=== PATIENT | female | born 1985 | race Caucasian/White ===

== ENCOUNTER 2018-11-14 05:41 | Inpatient (IN) | payer BC ==
[~2018-11-14] VITALS: Ht 170.2 cm; Wt 122.0 kg
[~2018-11-14 05:41] MED LIST: ACET1TAB40 PO; IBUP-1545 PO; LANS15CA27 PO; LEVO-86 PO; PRENAT PO
[2018-11-14 05:52] VITALS: BP 109/76; PULSE 114; RESP 18
[2018-11-14 06:17] VITALS: Ht 170.2 cm; Wt 122.0 kg
[2018-11-14] MEDS ORDERED: LACTATED RINGER'S 1,000 ML IV SCH (06:19)
[2018-11-14] MEDS ORDERED: AZITHROMYCIN 500MG/NS (PMX) 250 ML IV SCH (06:30)
[2018-11-14] MEDS ORDERED: CARBOPROST 250 MCG INJ IM PRN ×2 (06:30→14:30)
[2018-11-14] MEDS ORDERED: MISOPROSTOL 200 MCG TAB PR PRN ×2 (06:30→14:30)
[2018-11-14] MEDS ORDERED: METHYLERGONOVINE 0.2 MG INJ IM PRN ×2 (06:30→14:30)
[2018-11-14] MEDS ORDERED: OXYTOCIN 30 UNITS/LR 500 ML IV PRN ×2 (06:30→14:30)
[2018-11-14] MEDS ORDERED: ESCI10TA48 PO (06:57)
[2018-11-14] MEDS ORDERED: CHOL100062 PO (06:57)
[2018-11-14] MEDS ORDERED: CYAN100T PO (06:57)
--- NOTE | 2018-11-14 07:20 | PREAC ---
Date/Time of Note Date/Time of Note DATE: 11/14/18 TIME: 07:18 Anesthesia Eval and Record Evaluation Time Pre-Procedure Interview DATE: 11/14/18 TIME: 07:18 Age 33 Sex female NPO: 8 hrs Preoperative diagnosis Repeat and BTL Planned procedure and BTL Past Medical History Past Medical History: Includes Endo: Hypothyroid Heme: Anemia : : (2), Para: (1), Gestational age: (39) Surgery & Anesthesia Issues No known issue Meds Anticoagulation: No Beta Jenae within 24 hr: No Reason Beta Jenae not given: Pt. not on B-Jenae Reported Medications Cyanocobalamin* (Vitamin B12*) 100 Mcg Tab, 200 MCG PO DAILY, TAB 11/14/18 Cholecalciferol* (Vitamin D3*) 1,000 Unit Tablet, 1000 UNIT PO DAILY, TAB 11/14/18 Escitalopram Oxalate* (Escitalopram Oxalate*) 10 Mg Tablet, 10 MG PO DAILY, #30 TAB 11/14/18 Lansoprazole* (Prevacid*) 15 Mg Capsule.dr, 15 MG PO DAILY, CAP 12/01/14 Multivit/Min/Fol Ac/Iron/Pren* ( S*) 1 Tab Tab, 1 TAB PO DAILY, TAB 12/01/14 Levothyroxine Sodium* (Synthroid*) 100 Mcg Tablet, 100 MCG PO AC BREAKFAST, TAB 12/01/14 Discontinued Scripts Acetaminophen-Codeine* (Acetaminophen-Cod #3*) 300-30 Mg Tab, 1 TAB PO Q4H PRN for PAIN, #30 TAB Prov:BENOIT PICKARD MD 12/04/14 Ibuprofen* (Ibuprofen*) 800 Mg Tab, 800 MG PO Q8, #30 TAB Prov:BENOIT PICKARD MD 12/04/14 Current Medications Lactated Ringer's 1,000 ml @ 125 mls/hr Q8H IV Last administered on 11/14/18at 06:55; Admin Dose 125 MLS/HR; Start 11/14/18 at 06:19 Cefazolin Sodium 3 gm/Dextrose 100 ml @ 100 mls/hr ONCE IV ; Start 11/14/18 at 07:30 Oxytocin/Lactated Ringer's 500 ml @ 125 mls/hr POST IV ; Start 11/14/18 at 06:30 Azithromycin 250 ml @ 250 mls/hr ONCE IV Last administered on 11/14/18at 06:55; Admin Dose 250 MLS/HR; Start 11/14/18 at 06:30 Oxytocin/Lactated Ringer's 500 ml @ 0 mls/hr ONCE PRN IV .VAGINAL BLEEDING; Start 11/14/18 at 06:30 Methylergonovine Maleate (Methergine) 0.2 mg ONCE PRN IM .VAGINAL BLEEDING; Start 11/14/18 at 06:30 Carboprost Tromethamine (Hemabate) 250 mcg ONCE PRN IM .VAGINAL BLEEDING; Start 11/14/18 at 06:30 Misoprostol (Cytotec) 1,000 mcg ONCE PRN TN .VAGINAL BLEEDING; Start 11/14/18 at 06:30 Meds reviewed: Yes Allergies Coded Allergies: No Known Allergies (Verified Allergy, Unknown, 11/14/18) Allergies Reviewed: Yes Labs/Studies Labs Reviewed: Reviewed by anesthesiologist Result Diagram: 11/14/18 0600 Laboratory Tests 11/14/18 06:00 test: Positive Studies: ECG (n/a), CXR (n/a) Pre-procedure Exam Last vitals Vital Signs Date Temp Pulse Resp B/P (MAP) Pulse Ox O2 O2 Flow FiO2 Time Delivery Rate 11/14/18 97.8 114 18 109/76 Room Air 05:52 (87) Airway: Adequate mouth opening, Adequate thyromental dist Mallampati: Mallampati II Teeth: Normal Lung: Normal Heart: Normal ASA Physical Status ASA physical status: 2 Emergency: None Planned Anesthetic Neuraxial: Spinal Planned Pain Management Sub-arachniod narcotics, Parenteral pain med Pre-operative Attestations Prior to commencing anesthesia and surgery, the patient was re-evaluated, there was verification of: *The patient's identity *The results of appropriate recent lab work and preoperative vital signs *The above evaluation not changing prior to induction *Anesthetic plan, risk benefits, alternative and complications discussed with patient/family; questions answered; patient/family understands, accepts and wishes to proceed. LUDA CALZADA MD Nov 14, 2018 07:19
[2018-11-14] MEDS ORDERED: CEFAZOLIN 3 GM in DEXTROSE 5% 100 ML IV SCH (07:30)
[2018-11-14] MEDS ORDERED: CITRIC ACID/NA CITRATE 30 ML CUP PO ONE (07:30)
[2018-11-14] MEDS ORDERED: ONDANSETRON 4 MG INJ IV ONE (07:30)
--- NOTE | 2018-11-14 10:02 | HP ---
Date/Time of Note Date/Time of Note DATE: 11/14/18 TIME: 09:54 OB - History Hx of Present Free Text/Dictation 33 years old 2 para 1001 with previous delivery and hypothyroidism at 39 weeks desires repeat delivery and permanent surgical sterilization. She states good movement. She denies nausea, vomiting, shortness of breath, chest pain, headache, visual changes, vaginal b leeding or LOF. TOLAC discussed with patient and in multiple occasion during visit. They declined Chief Complaint: Scheduled for repeat delivery and permanent surgical sterilization Estimated Due Date: Nov 21, 2018 : 2 Para: 1 Spontaneous : 0 Therapeutic : 0 Care: Good Care Ultrasounds: Normal mid trimester US Obstetrical Complications: None Medical Complications: Other (Hypothyroidism) Past Family/Social History * Past Medical, Surgical, Family and Obstetric Histories reviewed from chart. Blood Type: A+ Rubella: immune RPR/VDRL: Negative GBS Status: Negative HBsAG: Negative OB Admission Exam Vital Signs Vital Signs Vital Signs Date Temp Pulse Resp B/P (MAP) Pulse Ox O2 O2 Flow FiO2 Time Delivery Rate 11/14/18 97.8 114 18 109/76 Room Air 05:52 (87) Physical Exam HEENT: WNL Heart: Rhythm Normal Lungs: Clear Abdomen: WNL Extremities: Normal Reflexes: Normal Membranes: Intact Heart Rate: 140's Accelerations: Accelerations Present Decelerations: No Decelerations Varibility: Moderate Contractions on Admission: >10 Minutes Apart Intensity: Mild Last 72 hours Lab Results CBC & BMP 11/14/18 06:00 OB Assessment/Plan Other plan: 33 years old 2 para 1001 with hypothyroidism and previous delivery at 39 weeks desires repeat delivery and permanent surgical sterilization. She declined TOLAC - FHR: No sign of metabolic acidosis- Category I - Continuous EFM, toco - CBC, blood type and screen - Please see the orders - A+/Rubella: Immune - GBS: Negative 2) Hypothyroidism: Effect on discussed in detail with patient. She is currently on levothyroxine 100 mcg daily, continue same dose. The risk of delivery including but not limited to bleeding, infection, injury to other organs (bowel, bladder, ureter, vessels, nerves), injury to fetus, blood transfusion, blood transfusion related infection, risk of anesthesia, adhesion, needs for future , removal of uterus, permanent surgical sterilization, other contraceptive options including IUD, increased risk of ectopic if failure of procedure alternatives or any other indicated surgery was discussed with the patient and her family. She expressed understanding. All of her questions were answered. She signed the informed consent. PHYSICIAN'S VERIFICATION OF INFORMED CONSENT The patient was counseled regarding the procedure, its indications, risks, potential complications and alternatives and any questions were answered. Consent was obtained. PLANNED PROCEDURE/TREATMENT: delivery with possible using vacuum/forceps, bilateral tubal ligation/salpingectomy and any other indicated surgery PHYSICIAN'S VERIFICATION OF INFORMED CONSENT FOR BLOOD TRANSFUSION: There is a reasonable possibility that blood transfusion will be necessary as a result of the patient's procedure. I have discussed the following with the patient/patient's legal public health representative: An explanation of the benefits and risks of the transfusion of blood or blood products and the possible alternatives. All questions have been answered to the patient's satisfaction. INFORMED CONSENT:The patient has been informed of: The nature of the proposed care, treatment, services, medications, interventions or procedures. Potential benefits, risks or side effects, including potential problems related to recuperation. The likelihood of achieving care treatment and service goals. Reasonable alternatives to the proposed care, treatment and service. The relevant risks, benefits and side effects related to alternatives, including the possible results of not receiving care, treatment and services. When indicated, any limitations on the confidentiality of information learned from or about the patient. If appropriate, the risks, benefits and alternatives of the drugs to be used for sedation/analgesia including moderate sedation. If appropriate, patient has been provided information on the risks, benefits and alternatives to the transfusion of blood and/or blood products. If appropriate, patient has been provided information regarding the Yo[employer] Oneil Blood Act. SANAM RODRÍGUEZ Nov 14, 2018 10:02
[2018-11-14] MEDS ORDERED: morphine SULFATE/PF (10 MG/10 ML) INJ ONE (10:05)
[2018-11-14] MEDS ORDERED: OXYTOCIN 10 UNIT INJ ONE (10:05)
[2018-11-14] MEDS ORDERED: PHENYLephrine (100 MCG/ML) 10ML SYG ONE (10:05)
[2018-11-14] MEDS ORDERED: ONDANSETRON 4 MG INJ IV PRN (10:30)
[2018-11-14] MEDS ORDERED: ACETAMINOPHEN 500 MG TAB PO PRN (10:30)
[2018-11-14] MEDS ORDERED: morphine 2 MG INJ IV PRN ×2 (10:30)
[2018-11-14] MEDS ORDERED: HYDROCODONE/APAP (5/325) TAB PO PRN (10:30)
[2018-11-14] MEDS ORDERED: HYDROmorphONE 0.5 MG/0.5 ML SYG IV PRN ×2 (10:30)
[2018-11-14] MEDS ORDERED: NALOXONE (0.4 MG/ML) INJ IV PRN (10:30)
[2018-11-14] MEDS ORDERED: NALBUPHINE HCL (10 MG/1 ML) INJ IV PRN (10:30)
[2018-11-14] MEDS ORDERED: DIPHENHYDRAMINE 50 MG INJ IV PRN (10:30)
[2018-11-14] MEDS ORDERED: KETOROLAC 30 MG INJ IV PRN (10:30)
[2018-11-14] MEDS ORDERED: DEXAMETHASONE 4 MG/ML 1 ML INJ ONE (10:34)
[2018-11-14] MEDS ORDERED: KETOROLAC 30 MG INJ ONE (10:34)
[2018-11-14] MEDS ORDERED: METOCLOPRAMIDE 10 MG INJ ONE (10:34)
--- NOTE | 2018-11-14 11:55 | PAC ---
Date/Time of Note Date/Time of Note DATE: 11/14/18 TIME: 11:55 Post-Anesthesia Notes Post-Anesthesia Note Last documented vital signs Vital Signs Date Temp Pulse Resp B/P (MAP) Pulse Ox O2 O2 Flow FiO2 Time Delivery Rate 11/14/18 97.8 114 18 109/76 98 Room Air 11:52 (87) Activity: WNL Respiratory function: WNL Cardiovascular function: WNL Mental status: Baseline Pain reasonably controlled: Yes Hydration appropriate: Yes Nausea/Vomiting absent: Yes LUDA CALZADA MD Nov 14, 2018 11:55
[2018-11-14] MEDS: OXYTOCIN 30 UNITS/LR 500 ML IV SCH ×2 (12:03→13:24)
--- NOTE | 2018-11-14 12:56 | OPR ---
Operative Report Planned Procedure Procedure date Nov 14, 2018 Procedure(s) Repeat low transverse delivery Performed by see signature line House Fellow: ZHANNA CAROLINA MD Anesthesiologist: LUDA CALZADA MD Pre-procedure diagnosis 33 years old 2 para 1001 with previous delivery and hypothyroidism at 39 weeks desiring repeat delivery and permanent surgical sterilization. She declined TOLAC [id number] Anesthesia Type: [id number] spinal Post-Procedure Post-procedure diagnosis 33 years old 2 para 1001 with previous delivery and hypothyroidism at 39 weeks desiring repeat delivery and permanent surgical sterilization. Findings 1. Normal uterus, fallopian tubes and ovaries 2. Viable female in cephalic presentation. 8 at 1 minute and 9 in 5 minutes. Weight: 3920 g. Height 21 inches. Time of delivery:10:38 3. Placenta with three vessel cord 4. Amniotic fluid - Clear Estimated Blood Loss: 500 - 600 mls Specimen(s) none Grafts/Implant(s) none Complication(s) none Pt Condition post procedure: critical Disposition: PACU Procedure Description INDICATION AND HISTORY: A 33 years old 2 para 1001 with previous delivery and hypothyroidism at 39 weeks desiring repeat delivery and permanent surgical sterilization. She declined TOLAC. The risk of delivery including but not limited to bleeding, infection, injury to other organs (bowel, bladder, ureter, vessels, nerves), injury to fetus, blood transfusion, blood transfusion related infection, risk of anesthesia, adhesion, needs for future , removal of uterus or any other indicated surgery, permanent surgical sterilization, other contraceptive options including IUD, increased risk of ectopic if failure occurs discussed with the patient and her family. She expressed understanding. All of her questions were answered. She signed the informed consent. DESCRIPTION OF OPERATION: The patient was taken to the operating room, where she was identified and the procedure was verified. The patient received two gram of Ancef 30 minutes prior to surgery. Spinal anesthesia was placed. The patient placed in the dorsal supine position with a left tilt. The heart rate was 135 bpm. The patient was then prepped and draped in the normal sterile fashion. A Pfannenstiel skin incision was made and carried down to the fascia with knife. The fascia was incised in the midline and the fascial incision was carried laterally with Perez scissors. The superior portion of the fascial incision was then grasped with Julio Cesar clamps and tented up and dissected off the underlying rectus muscle with sharp dissection. The lower portion of the fascial incision was then made in a similar fashion. The rectus muscle was and the peritoneum was entered. The peritoneal incision was then stretched and an Paddy retractor was inserted. Then, an incision was made in the lower uterine segment in a transverse fashion with a knife and extended bluntly. The was delivered atraumatically in cephalic presentation with the above findings. The umbilical cord was clamped and cut. The neonatology resuscitation team was present and the baby was handed to them. A cord blood sample was obtained for further evaluation. The placenta and membrane, which appeared normal were Removed. The uterus was exteriorized and cleared of all clot and debris. The uterus was then closed in a two layer fashion with 0-Monocryl. At the time of closure, hemostasis was noted. Then the left fallopian tube was identified and was grasped using Carmen clamp, segment of distal fallopian tube including fimbria was double ligated with O- plain, excised and sent to pathology. Same procedure repeated at the right side. Hemostasis of stump of both fallopian tube reassured. The gutters were irrigated. The peritoneum was reapproximated with 3-0 *Vicryl. The muscle was reapproximated with 3-0 Vicryl. The fascia was approximated with 0-Vicryl in a running fashion. The subcutaneous tissue was re approximated with 3-0 vicryl in two layer. The skin was closed with 4-0 Monocryl. All instruments, sponges and needle counts were correct x3. The patient tolerated the procedure well. She transferred to the recovery room in stable condition. SANAM RODRÍGUEZ Nov 14, 2018 12:55
[2018-11-14 14:00] VITALS: BP 118/74; PULSE 70; RESP 18
[2018-11-14] MEDS ORDERED: OXYTOCIN 30 UNITS/LR 500 ML IV SCH (14:11)
[2018-11-14] MEDS: DEXTROSE 5%-LR 1,000 ML IV SCH ×2 (14:11→17:26)
[2018-11-14] MEDS ORDERED: METHYLERGONOVINE 0.2 MG TAB PO PRN (14:30)
[2018-11-14] MEDS ORDERED: MAGNESIUM HYDROXIDE 30ML CUP PO PRN (14:30)
[2018-11-14] MEDS ORDERED: LANOLIN HPA 1 PKT TOP PRN (14:30)
[2018-11-14 19:50] VITALS: BP 101/65; PULSE 70; RESP 19
[2018-11-14] MEDS: SENNA/DOCUSATE NA (8.6MG/50MG) TAB PO SCH (21:08)
[2018-11-15] VITALS: BP 105/61; PULSE 85; RESP 20
[2018-11-15] MEDS: DEXTROSE 5%-LR 1,000 ML IV SCH (00:58)
[2018-11-15 05:30] VITALS: BP 107/59; PULSE 69; RESP 19
[2018-11-15 07:50] VITALS: BP 104/69; PULSE 79; RESP 18
[2018-11-15] MEDS: LEVOTHYROXINE 100 MCG TAB PO SCH (07:51)
[2018-11-15] MEDS: ESCITALOPRAM 10 MG TAB PO SCH (09:36)
[2018-11-15] MEDS: SENNA/DOCUSATE NA (8.6MG/50MG) TAB PO SCH ×2 (09:36→20:36)
[2018-11-15] MEDS: LANSOPRAZOLE 15 MG CAP PO SCH (09:36)
[2018-11-15] MEDS ORDERED: DIPHTH/TET/ACEL PERTUSS (ADULT) 0.5 ML VIAL IM* ONE (11:00)
[2018-11-15] MEDS ORDERED: HYDROCODONE/APAP (5/325) TAB NGT PRN (11:00)
[2018-11-15] MEDS: HYDROCODONE/APAP (5/325) TAB GTB SCH ×2 (13:05→21:36)
[2018-11-15] MEDS: IBUPROFEN 800 MG TAB PO SCH ×2 (13:05→21:35)
[2018-11-15 16:20] VITALS: BP 127/84; PULSE 74; RESP 18
[2018-11-15 19:50] VITALS: BP 113/66; PULSE 73; RESP 19
[2018-11-16 04:25] VITALS: BP 121/74; PULSE 80; RESP 19
[2018-11-16] MEDS: HYDROCODONE/APAP (5/325) TAB GTB SCH ×3 (05:49→21:59)
[2018-11-16] MEDS: IBUPROFEN 800 MG TAB PO SCH ×3 (05:49→21:59)
[2018-11-16 08:00] VITALS: BP 112/72; PULSE 65; RESP 18
[2018-11-16] MEDS: LANSOPRAZOLE 15 MG CAP PO SCH (08:27)
[2018-11-16] MEDS: LEVOTHYROXINE 100 MCG TAB PO SCH (08:27)
[2018-11-16] MEDS: ESCITALOPRAM 10 MG TAB PO SCH (08:28)
[2018-11-16] MEDS: SENNA/DOCUSATE NA (8.6MG/50MG) TAB PO SCH ×2 (08:28→21:16)
--- NOTE | 2018-11-16 12:58 | QN ---
Documentation Comment POD#2 is stable afebrile tolerates diet No VB +Flatus +Voids VS stable Gen NAD Abd soft NT ND Incision intact Gentalia No blood at perineum -->Discharge plan tomorrow -->Ambulation -->Precautions discussed MADDIE KNIGHT M.D. Nov 16, 2018 12:58
[2018-11-16 16:00] VITALS: BP 124/82; PULSE 67; RESP 19
[2018-11-16 20:00] VITALS: BP 125/80; RESP 16
[2018-11-17 04:30] VITALS: BP 111/71; PULSE 65; RESP 18
[2018-11-17] MEDS: IBUPROFEN 800 MG TAB PO SCH (06:15)
[2018-11-17] MEDS: HYDROCODONE/APAP (5/325) TAB GTB SCH (06:15)
[2018-11-17 08:00] VITALS: BP 125/80; PULSE 62; RESP 20
[2018-11-17] MEDS: SENNA/DOCUSATE NA (8.6MG/50MG) TAB PO SCH (08:30)
[2018-11-17] MEDS: LEVOTHYROXINE 100 MCG TAB PO SCH (08:30)
[2018-11-17] MEDS: LANSOPRAZOLE 15 MG CAP PO SCH (08:30)
[2018-11-17] MEDS: ESCITALOPRAM 10 MG TAB PO SCH (08:30)
[2018-11-17] MEDS ORDERED: MEASLES,MUMPS,RUBELLA VACCINE INJ SC* ONE (09:00)
[2018-11-17] MEDS ORDERED: DIPHTH/TET/ACEL PERTUSS (ADULT) 0.5 ML VIAL IM* ONE (09:00)
--- NOTE | 2018-11-17 13:05 | QN ---
Documentation Comment POD#3 is stable afebrile tolerates diet No VB +Flatus +Voids VS stable Gen NAD Abd soft NT ND Incision intact Gentalia No blood at perineum -->Discharge -->Ambulation -->Precautions discussed MADDIE KNIGHT M.D. Nov 17, 2018 13:05
--- NOTE | 2018-11-17 13:07 | DS ---
Date/Time of Note Date/Time of Note DATE: 11/17/18 TIME: 13:07 Discharge Summary Admission/Discharge Info Admit Date/Time Nov 14, 2018 at 05:41 Discharge Date/Time Discharge Diagnosis Patient Condition: Good Hospital Course Uneventful Home Meds Reported Medications Cyanocobalamin* (Vitamin B12*) 100 Mcg Tab, 200 MCG PO DAILY, TAB 11/14/18 Cholecalciferol* (Vitamin D3*) 1,000 Unit Tablet, 1000 UNIT PO DAILY, TAB 11/14/18 Escitalopram Oxalate* (Escitalopram Oxalate*) 10 Mg Tablet, 10 MG PO DAILY, #30 TAB 11/14/18 Lansoprazole* (Prevacid*) 15 Mg Capsule.dr, 15 MG PO DAILY, CAP 12/01/14 Multivit/Min/Fol Ac/Iron/Pren* ( S*) 1 Tab Tab, 1 TAB PO DAILY, TAB 12/01/14 Levothyroxine Sodium* (Synthroid*) 100 Mcg Tablet, 100 MCG PO AC BREAKFAST, TAB 12/01/14 Discontinued Scripts Acetaminophen-Codeine* (Acetaminophen-Cod #3*) 300-30 Mg Tab, 1 TAB PO Q4H PRN for PAIN, #30 TAB Prov:BENOIT PICKARD MD 12/04/14 Ibuprofen* (Ibuprofen*) 800 Mg Tab, 800 MG PO Q8, #30 TAB Prov:BENOIT PICKARD MD 12/04/14 Primary Care Provider Not On Staff Doctor MADDIE KNIGHT M.D. Nov 17, 2018 13:07
--- NOTE | 2018-11-18 14:43 | DELSUM ---
Delivery Summary A-C Datetime Report Generated by CPN: 11/18/2018 14:43 DELIVERY PERSONNEL Vending Machine Operator: Ladi Gamez MATERNAL INFORMATION Delivery Anesthesia: Spinal Medications in Delivery: see anesthesia records Delivery QBL (ml): 700 Placenta Cultured: No Maternal Complications: Other Other Maternal Complications: Hypothyroidism and anxiety LABOR SUMMARY EDC: 11/21/2018 00:00 No. Babies in Womb: 1 Attempted: No Labor Anesthesia: None LABOR INFORMATION Reason for Induction: Not Applicable Oxytocin: N/A Group B Beta Strep: Negative Antibiotics # of Doses: 2 Antibiotics Time of Last Dose: 11/14/2018 10:05 Steroids Given: None Reason Steroids Not Administered: Not Applicable MEMBRANES Membranes Rupture Method: Artificial Rupture of Membranes: 11/14/2018 10:38 Length of Rupture (hr): 0.00 Amniotic Fluid Color: Clear Amniotic Fluid Amount: Large Amniotic Fluid Odor: None STAGES OF LABOR Stage 3 hr: 0 Stage 3 min: 2 CSECTION DELIVERY Primary Indication: Repeat Elective Secondary Indication: N/A CSection Urgency: Elective CSection Incidence: Repeat Labor: No Labor Elective: N/A CSection Incision: Lower Uterine Transverse Sterilization Procedure: [place] BABY A INFORMATION Delivery Date/Time: 11/14/2018 10:38 Method of Delivery: Born in Route : No : N/A Forceps: N/A Vacuum Extraction: N/A Shoulder Dystocia : No SHOULDER DYSTOCIA BABY A Infant Delivery Date/Time: 11/14/2018 10:38 PRESENTATION/POSITION BABY A Presentation: Cephalic Cephalic Presentation: N/A Breech Presentation: N/A PLACENTA INFORMATION BABY A Placenta Delivery Time : 11/14/2018 10:40 Placenta Method of Delivery: Manual Removal Placenta Status: Delivered SCORES BABY A Heart Rate 1 min: >100 bpm Resp Effort 1 min: Good Cry Reflex Irritability 1 min: Cough/Sneeze/Pulls Away Muscle Tone 1 min: Active Motion Color 1 min: Blue/Pale Resuscitation Effort 1 min: Tactile Stimulation SCORE 1 MIN: 8 Heart Rate 5 min: >100 bpm Resp Effort 5 min: Good Cry Reflex Irritability 5 min: Cough/Sneeze/Pulls Away Muscle Tone 5 min: Active Motion Color 5 min: Body Blackey, Extremit Blue Resuscitation Effort 5 min: Tactile Stimulation SCORE 5 MIN: 9 INFANT INFORMATION BABY A Gestational Age at Delivery: 39.0 Gestational Status: Full Term- 39- 40.6 Weeks Infant Outcome : Liveborn Condition : Stable Sex: Female IDENTIFICATION/MEDS BABY A ID Band Number: [id number] ID Band Location: Right Leg; Left Arm Sensor Applied: Yes Sensor Number: [id number] Sensor Location : Cord Clamp Vitamin K Given : Not Given Erythromycin Given: Not Given WEIGHT/LENGTH BABY A Birthweight (gm): 3920 Weight (lb): 8 Infant Weight (oz): 10 Length (in): 21.00 Length (cm): 53.34 CORD INFORMATION BABY A No. Cord Vessels: 3 Nuchal Cord : N/A Cord Blood Taken: Yes Suction: Mouth; Nose ASSESSMENT BABY A Complications: None Physical Findings at Delivery: Within Normal Limits Infant Respirations: Appears Normal Doubler Helper/ALS Called : No Infant Care By: APRIL CORONADO Transferred To: Remains with Mother
--- NOTE | 2018-11-18 15:10 | NSTRPT ---
NST Information Datetime Report Generated by CPN: 11/18/2018 15:10 Datetime: 11/12/2018 08:07 NST Information EGA: 38.5 Test Number: 4 Time on Monitor: 11/12/2018 08:38 Time off Monitor: 11/12/2018 09:13 NST Duration (Min): 35 Reason for NST: Other Reason for NST Other: Hypothyroid/Elevated BMI Test and Monitor Explained: Monitor Explained; Test Explained; Verbalized Understanding Pulse: 105 Resp: 18 SBP: 116 DBP: 78 Test Evaluation NST Interventions: Reposition Patient; Acoustic Stimulation; Other NST Interventions Other: FAS @ 0852 followed by accel to 166;0907 reposition on right side;RN hel d US for pickup of FHTS Patient States Movement: Present Contraction Frequency: x1/40/mild/pain level 0 FHR Baseline : 140 Variability: Moderate 6-25bpm Accelerations: 15X15 Decelerations: None FHR Category: Category I NST Results: Reactive Comments: To u/s alesha 15.7 cm cephalic Scheduled for CS on 3/21 Electronically Signed By E-Signature: with User ID: [id number] Datetime: 11/08/2018 07:50 NST Information EGA: 38.1 NST Duration (Min): 54 Datetime: 11/05/2018 08:14 NST Information EGA: 37.5 NST Duration (Min): 32 Datetime: 11/01/2018 08:38 NST Information EGA: 37.1 Datetime: 11/01/2018 08:18 NST Duration (Min): 36
== END 2018-11-17 13:36 | disposition home or self-care (01) | DRG 785 ==
LOC: L-D 05:41 → PP1 13:30
PROVIDERS: ADMIT Obstetrics & Gynecology; ATTEND Obstetrics & Gynecology
PROC: 0UL70ZZ Occlusion of Bilateral Fallopian Tubes, Open Approach (ICD-10-PCS; 2018-11-14)
PROC: 10D00Z1 Extraction of Products of Conception, Low, Open Approach (ICD-10-PCS; principal; 2018-11-14 07:30)
DX: O65.5 Obstructed labor due to abnormality of maternal pelvic organs (principal); O99.284 Endocrine, nutritional and metabolic diseases complicating childbirth; E03.9 Hypothyroidism, unspecified; O34.211 Maternal care for low transverse scar from previous cesarean delivery; Z3A.39 39 weeks gestation of pregnancy; Z37.0 Single live birth; Z30.2 Encounter for sterilization
CPT/HCPCS: 85025; 85610; 85730; 86592; 86850; 86900; 86901; 87340; 88302; 99464; J0456; J0690; J1100; J1200; J1885; J2274; J2370; J2405; J2590; J2765; J7120; J7121

== ENCOUNTER 2019-01-17 10:19 | Emergency (ER) | payer BC ==
[~2019-01-17] VITALS: Ht 170.2 cm; Wt 112.4 kg
[~2019-01-17 10:19] MED LIST changes: -ACET1TAB40 PO; +ESCI10TA48 PO; -IBUP-1545 PO
[2019-01-17 10:23] VITALS: Ht 170.2 cm; Wt 112.4 kg
[2019-01-17] MEDS ORDERED: SOD CHLORIDE 0.9% 1,000 ML IV STA (11:40)
[2019-01-17] MEDS: morphine 4 MG/ML VIAL IV STA ×2 (11:40→12:10)
[2019-01-17] MEDS ORDERED: ONDANSETRON 4 MG INJ IV STA (11:40)
[2019-01-17] MEDS ORDERED: IBUP800T48 PO (12:51)
--- NOTE | 2019-01-17 12:59 | ERD ---
ER Documentation Chief Complaint Chief Complaint pt is bib self with c/o LRQ pain had /tubal 9 wks ago, HPI This is a 33-year-old female who presents ED with complaints of left lower quadrant abdominal pain that started 4 days ago. Patient states the pain waxes and wanes in severity and is intermittent. Patient states that lying down makes the pain subside. Patient had a section performed 9 weeks ago and ther e were no complications with this. Patient denies any pain along the section line. Admits to nausea but has not had any episodes of vomiting. Admits to off-and-on loose stool. Denies fevers, chills, vomiting, hematemesis, hemoptysis, dysuria, hematuria, increased frequency of urination, vaginal pain, vaginal discharge, pain along section. ROS All systems reviewed and are negative except as per history of present illness. Medications Home Meds Active Scripts Ibuprofen* (Motrin*) 800 Mg Tab, 800 MG PO Q6, #30 TAB Prov:BUBBA FULTON PA-C 01/17/19 Reported Medications Escitalopram Oxalate* (Escitalopram Oxalate*) 10 Mg Tablet, 10 MG PO DAILY, #30 TAB 11/14/18 Lansoprazole* (Prevacid*) 15 Mg Capsule.dr, 15 MG PO DAILY, CAP 12/01/14 Multivit/Min/Fol Ac/Iron/Pren* ( S*) 1 Tab Tab, 1 TAB PO DAILY, TAB 12/01/14 Levothyroxine Sodium* (Synthroid*) 100 Mcg Tablet, 100 MCG PO AC BREAKFAST, TAB 12/01/14 Allergies Allergies: Coded Allergies: No Known Allergies (Verified Allergy, Unknown, 11/14/18) PMhx/Soc Medical and Surgical Hx: pt denies Medical Hx, pt denies Surgical Hx Hx Alcohol Use: No Hx Substance Use: No Hx Tobacco Use: No Smoking Status: Never smoker FmHx Family History: No diabetes Physical Exam Vitals Vital Signs Date Temp Pulse Resp B/P (MAP) Pulse Ox O2 O2 Flow FiO2 Time Delivery Rate 01/17/19 99.1 93 16 146/82 100 10:23 (103) Physical Exam Physical Exam Vitals signs: Reviewed by me. General: Well developed, well nourished, in no acute distress. Patient is awake and alert. Head: Normocephalic, atraumatic. Eyes: Normal conjunctiva, Pupils PERRLA, EOM intact grossly ENT: Pharynx is clear, Moist mucous membranes, external ears, nose and mouth normal Neck: Supple, no masses, lymphadenopathy or JVD Respiratory: Clear to auscultation bilaterally with no wheezing, rhonchi, rales, no distress Cardiovascular: RRR, no murmurs, rubs, or gallops Abdominal: Obese, no peritoneal signs, no rigidity, no surgical abdomen, bowel sounds present all 4 quadrants, nontender 90 palpation all 4 quadrants, McBurney's point nontender, no rebound tenderness There is a well-healing wound along suprapubic area with no redness, swelling or purulent drainage or evidence of infection l : Deferred MSK: No edema, no unilateral swelling, 5/5 strength Back: No midline tenderness. No flank tenderness Neurologic: Alert and oriented, moving all extremities, normal speech, no focal weakness, no cerebellar signs. Normal mentation Skin: warm and dry, No rash Psych: Normal mood Result Diagram: 01/17/19 1159 01/17/19 1159 Results 24 hrs Laboratory Tests Test 01/17/19 11:59 01/17/19 12:00 01/17/19 12:02 White Blood Count 10.2 10^3/ul Red Blood Count 4.65 10^6/ul Hemoglobin 13.0 g/dl Hematocrit 40.4 % Mean Corpuscular Volume 86.9 fl Mean Corpuscular Hemoglobin 28.0 pg Mean Corpuscular 32.2 g/dl Hemoglobin Concent Red Cell Distribution Width 15.4 % Platelet Count 242 10^3/UL Mean Platelet Volume 11.5 fl Immature Granulocytes % 0.400 % Neutrophils % 74.6 % Lymphocytes % 14.7 % Monocytes % 8.8 % Eosinophils % 1.1 % Basophils % 0.4 % Nucleated Red Blood Cells % 0.0 /100WBC Immature Granulocytes # 0.040 10^3/ul Neutrophils # 7.6 10^3/ul Lymphocytes # 1.5 10^3/ul Monocytes # 0.9 10^3/ul Eosinophils # 0.1 10^3/ul Basophils # 0.0 10^3/ul Nucleated Red Blood Cells # 0.0 10^3/ul Sodium Level 142 mmol/L Potassium Level 3.9 mmol/L Chloride Level 105 mmol/L Carbon Dioxide Level 27 mmol/L Anion Gap 10 Blood Urea Nitrogen 10 mg/dl Creatinine 0.75 mg/dl Est Glomerular Filtrat > 60 mL/min Rate mL/min Glucose Level 98 mg/dl Calcium Level 9.5 mg/dl Total Bilirubin 0.8 mg/dl Direct Bilirubin 0.00 mg/dl Indirect Bilirubin 0.8 mg/dl Aspartate Amino 68 IU/L Transf (AST/SGOT) Alanine 106 IU/L Aminotransferase (ALT/SGPT) Alkaline Phosphatase 104 IU/L Total Protein 7.6 g/dl Albumin 4.5 g/dl Globulin 3.10 g/dl Albumin/Globulin Ratio 1.45 Lipase 36 U/L Urine Color YELLOW Urine Clarity CLEAR Urine pH 6.0 Urine Specific Hardwick 1.020 Urine Ketones NEGATIVE mg/dL Urine Nitrite NEGATIVE mg/dL Urine Bilirubin NEGATIVE mg/dL Urine Urobilinogen NEGATIVE mg/dL Urine Leukocyte Esterase NEGATIVE Gwen/ul Urine Hemoglobin NEGATIVE mg/dL Urine Glucose NEGATIVE mg/dL Urine Total Protein NEGATIVE mg/dl POC Beta HCG, Qualitative NEGATIVE Current Medications Medications Dose Sig/Kalpana Start Time Status Last (Trade) Ordered Route PRN Stop Time Admin Dose Reason Admin Sodium 1,000 ml @ Q1H STAT 01/17/19 DC 01/17/19 Chloride 1,000 mls/hr IV 11:40 12:11 01/17/19 12:39 Morphine 4 mg ONCE STAT 01/17/19 DC Sulfate IV 11:40 (morphine) 01/17/19 11:42 Ondansetron 4 mg ONCE STAT 01/17/19 DC 01/17/19 HCl (Zofran IV 11:40 12:10 Inj) 01/17/19 11:42 Procedures/MDM LAB INTERPRETATION: CBC shows no evidence of hemorrhage or infection Chemistry shows no evidence of significant electrolyte abnormalities or renal insufficiency Liver function test shows no evidence of acute biliary or hepatic dysfunction Coagulation study showed no concerning coagulopathy Lipase shows no evidence of acute pancreatitis Cardiac biomarkers show no evidence of acute myocardial injury or coronary ischemia BNP shows no evidence of acute congestive heart failure and/or volume overload ER COURSE: The patient was offered medication for pain but declines. The patient was stable throughout ED course. I kept the patient and/or family informed of laboratory and diagnostic imaging results throughout the emergency room course. The patient was promptly evaluated and a treatment plan was devised based on H&P and other data. This plan was discussed with the patient who agreed and had no further questions or concerns prior to discharge. MEDICAL DECISION MAKING: This is a 33-year-old female who presents ED with left lower quadrant abdominal pain that is been intermittent for the past 4 days. Non- woman presenting with abdominal pain. test is negative. Considered causes of female-specific abdominal pain including endometritis, sepsis, pelvic inflammatory disease, tubo-ovarian abscess, [id number]-[id number]-Czudvr, and ovarian torsion. Also considered causes of abdominal pain that are not gender-specific (e.g., appendicitis, volvulus, small bowel obstruction, mesenteric adenitis, acute cholecystitis/choledocholithiasis and other biliary pathology, etc.). Patient did have a delivery 9 weeks ago. The surgical incision line is healing well and there is no evidence of redness, swelling or infection. Given the patient has had some loose stools this likely could be a gastroenteritis patient well-appearing with normal vital signs. No peritoneal signs and abdomen benign on multiple repeat examinations. Pt well hydrated. Lab work in the emergency department today is unremarkable. Discussed doing possible imaging with patient and she declines at this time l. Patient given strict return precautions for worsening pain, inability to eat/drink, fevers (temperature over 100.4F), or other concerns. Prior to discharge all questions answered. She agrees with treatment plan and understands strict return precautions. Follow-up for repeat abdominal exam within 10 hours. DISPOSITION PLAN: We discussed follow up with the patient's primary care doctor within 24 to 48 hours. Patient counseled regarding my diagnostic impression and care plan. Prior to discharge all questions answered. Pt agrees with treatment plan and understands strict return precautions. Precautionary instructions provided including instructions to return to the ER if not improving or for any worsening or changing symptoms or concerns. SPECIALIST FOLLOW UP RECOMMENDED: obgyn Patient has been advised to follow up with primary care in 1-2 days. Disclaimer: Inadvertent spelling and grammatical errors are likely due to EHR/dictation software use and do not reflect on the overall quality of patient care. Also, please note that the electronic time recorded on this note does not necessarily reflect the actual time of the patient encounter. Departure Diagnosis: Primary Impression: Abdominal pain Abdominal location: left lower quadrant Qualified Codes: R10.32 - Left lower quadrant pain Condition: Stable Patient Instructions: Abdominal Pain Referrals: [facility] YOU HAVE RECEIVED A MEDICAL SCREENING EXAM AND THE RESULTS INDICATE THAT YOU DO NOT HAVE A CONDITION THAT REQUIRES URGENT TREATMENT IN THE EMERGENCY DEPARTMENT. FURTHER EVALUATION AND TREATMENT OF YOUR CONDITION CAN WAIT UNTIL YOU ARE SEEN IN YOUR DOCTORS OFFICE WITHIN THE NEXT 1-2 DAYS. IT IS YOUR RESPONSIBILITY TO MAKE AN APPOINTMENT FOR [facility]ARE. IF YOU HAVE A PRIMARY DOCTOR --you should call your primary doctor and schedule an appointment IF YOU DO NOT HAVE A PRIMARY DOCTOR YOU CAN CALL OUR PHYSICIAN REFERRAL HOTLINE AT IF YOU CAN NOT AFFORD TO SEE A PHYSICIAN YOU CAN CHOSE FROM THE FOLLOWING [facility] [address] [facility]. [facility] [phone] [address] [facility]. [facility] [address] [facility]. [facility] [address] [facility]. [facility] [phone] [facility]. [facility] [address] [employer] [id number] [facility] [address] [place], [place] [phone] OFFICE FAX DEVAN DAMON [address] [place], [place] [phone] [place] [address] [place], [place] [phone] [place] [address] [facility], [address] [id number] [address] [address] [place] [id number] [facility] [address] [place] [address] [facility] [id number] - [place] [address] [facility] [address] [place] [address] [facility] [address], [place] [address] [address] [place], [facility] [address] [place] [address] Additional Instructions: Return in 10 hours for repeat abdominal exam Patient advised to return to the ED immediately for new or worsening symptoms. Patient advised to follow up with primary care provider in the next 24-48 hours. Patient verbalized understanding and agrees with treatment plan and course of action. If patient has no primary care they may follow up with one of the community clinics listed on the following page or one of the options listed below [facility] [address] [place] [id number] or [facility] [address] [place] [address] or [facility] [address] [place] [address] BUBBA FULTON PA-C January 17, 2019 12:59
[2019-01-17 13:01] VITALS: BP 120/76; PULSE 71; RESP 18
== END 2019-01-17 13:05 | disposition home or self-care (01) ==
LOC: FTE 10:19
DX: R10.32 Left lower quadrant pain (principal)
CPT/HCPCS: 36415; 80053; 81003; 81025; 83690; 85025; 96361; 96374; 99284; J2405; J7030; J2270